=== PATIENT | male | born 1995 | race African-American/Black ===

== ENCOUNTER 2017-09-26 14:03 | Emergency (ER) | payer MEDICAID, OTHER ==
[~2017-09-26] VITALS: Ht 167.6 cm; Wt 68.7 kg
[2017-09-26 14:04] VITALS: BP 112/60
== END 2017-09-26 14:56 | disposition home or self-care (01) ==
LOC: ED 14:20
DX: S93.401A Sprain of unspecified ligament of right ankle, initial encounter (principal); X58.XXXA Exposure to other specified factors, initial encounter; Y93.67 Activity, basketball; Y92.009 Unspecified place in unspecified non-institutional (private) residence as the place of occurrence of the external cause; Y99.8 Other external cause status
CPT/HCPCS: 99283